=== PATIENT | male | born 1955 | race Caucasian/White ===

== ENCOUNTER 2024-12-27 12:30 | Outpatient (CLI) | payer MEDICARE, BC | END 2024-12-27 12:31 | disposition home or self-care (01) | LOC: SCSMRI 12:30 | PROVIDERS: ATTEND Internal Medicine | DX: D47.2 Monoclonal gammopathy (principal); R29.898 Other symptoms and signs involving the musculoskeletal system; G62.9 Polyneuropathy, unspecified; R20.0 Anesthesia of skin; M54.14 Radiculopathy, thoracic region; M54.12 Radiculopathy, cervical region; M48.8X4 Other specified spondylopathies, thoracic region; M89.9 Disorder of bone, unspecified; M47.816 Spondylosis without myelopathy or radiculopathy, lumbar region; M48.061 Spinal stenosis, lumbar region without neurogenic claudication; M51.26 Other intervertebral disc displacement, lumbar region; M48.02 Spinal stenosis, cervical region; G95.0 Syringomyelia and syringobulbia | CPT/HCPCS: 72156; 72157; 72158 ==

== ENCOUNTER 2025-07-10 10:15 | Outpatient (CLI) | payer MEDICARE, BC | END 2025-07-10 10:16 | disposition home or self-care (01) | LOC: PET 10:15 | PROVIDERS: ATTEND Internal Medicine | DX: M54.12 Radiculopathy, cervical region (principal); M54.14 Radiculopathy, thoracic region; D47.2 Monoclonal gammopathy; R53.1 Weakness | CPT/HCPCS: 78815; A9552 ==